=== PATIENT | male | born 1970 | race Hispanic/Latino ===

== ENCOUNTER 2020-09-30 12:31 | Emergency (ER) | payer SELFPAY ==
--- NOTE | 2020-09-30 15:39 | RAD REPORT ---
EXAM DESCRIPTION: RAD - Chest Single View - 09/30/2020 3:23 pm CLINICAL HISTORY: Cough;SOB COMPARISON: No comparisons FINDINGS: Moderate bilateral patchy airspace disease. The heart size is within normal limits.No acut e osseous abnormality. No significant pleural effusions or pneumothorax. IMPRESSION: Moderate airspace disease bilaterally concerning for multifocal pneumonia, including Cov id-19.
[2020-09-30 17:45] LABS: Absolute Lymphocytes (CBC) 0.7 K/uL (0.7-4.9); Basophils % 0.2 % (0-1.3); Hematocrit 43.5 % (39.6-49.0); Lymphocytes % 7.2 % (15.3-44.8); MPV 9.7 fL (7.6-11.3); RBC Red Blood Cell Count 4.92 M/uL (4.33-5.43)
[2020-09-30 17:50] LABS: Protime INR 1.09
[2020-09-30 18:41] LABS: ALT/SGPT 27 U/L (12-78); AST/SGOT 28 U/L (15-37); Albumin 3.1 g/dL (3.4-5.0); Alkaline Phosphatase 79 U/L (45-117); BUN Blood Urea Nitrogen 9 mg/dL (7-18); Bicarbonate 23 mmol/L (21-32); Bilirubin Direct 0.1 mg/dL (0-0.2); Bilirubin Total 0.3 mg/dL (0.2-1.0); Glucose Level 89 mg/dL (74-106); Lipase 63 U/L (73-393); Potassium 3.8 mmol/L (3.5-5.1); Protein, Total 7.6 g/dL (6.4-8.2); Sodium Level 139 mmol/L (136-145); Troponin (Emerg Dept Use Only) < 0.02 ng/mL (0.0-0.045)
[2020-09-30 18:46] LABS: White Blood Cell Scan OK (OK)
[2020-09-30 18:47] LABS: Blood Morphology Comment NOT SEEN (NOT SEEN); Platelet Estimate ADEQ
--- NOTE | 2020-09-30 19:50 | ER ---
Nurse's Notes [facility] Name: Elliot Mccoy Age: 50 yrs Sex: Male : 1970 Arrival Date: 09/30/2020 Time: 12:32 Bed 12 Private MD: Diagnosis: Coronavirus infection, unspecified;Viral pneumonia, unspecified Presentation: 09/30 13:40 Chief complaint: Patient states: Tested positive for COVID x 1 week ago, reports jl7 increased shortness of breath, unable to take a deep breath because it hurts chest and makes me cough. Coronavirus screen: Client denies travel out of the [place] in the last 14 days. cough unrelated to allergies, fatigue, shortness of breath, Client presents with at least one sign or symptom that may indicate coronavirus-19. Standard/surgical mask placed on the client. Provider contacted for isolation considerations. Client reports previous positive COVID test result. Ebola Screen: No symptoms or risks identified at this time. Initial Sepsis Screen: Does the patient meet any 2 criteria? No. Patient's initial sepsis screen is negative. Does the patient have a suspected source of infection? No. Patient's initial sepsis screen is negative. Risk Assessment: Do you want to hurt yourself or someone else? Patient reports no desire to harm self or others. Onset of symptoms was September 23, 2020. 13:40 Method Of Arrival: Ambulatory [facility] 13:40 Acuity: WILLIAM 3 jl7 Triage Assessment: 20:49 General: Appears in no apparent distress. Behavior is calm, cooperative, appropriate lh3 for age. Respiratory: Reports shortness of breath cough that is Onset: The symptoms/episode began/occurred yesterday, the patient has moderate shortness of breath. Historical: - Allergies: 13:43 No Known Allergies; jl7 - PMHx: 13:43 Asthma; jl7 - PSHx: 13:43 None; jl7 - Immunization history:: Client reports having NOT received the Covid vaccine. - Social history:: Smoking status: Patient denies any tobacco usage or history of. Screenin:13 Abuse screen: Denies threats or abuse. Denies injuries from another. Nutritional iw screening: No deficits noted. Tuberculosis screening: No symptoms or risk factors identified. Fall Risk IV access (20 points). Assessment: 19:00 Reassessment: Patient appears in no apparent distress at this time. Patient and/or iw family updated on plan of care and expected duration. Pain level reassessed. Patient is alert, oriented x 3, equal unlabored respirations, skin warm/dry/pink. 19:18 Pain: Complains of pain in chest. Cardiovascular: Rhythm is regular. Respiratory: iw Airway is patent Respiratory effort is even, labored, Breath sounds are diminished bilaterally. 19:18 Reassessment: Patient ambulated and O2 Sat dropped to 94 at the lowest. Upon returning to room patient O2 96-97 sitting.. Vital Signs: 13:40 BP 113 / 81; Pulse 75; Resp 17; Temp 97.1; Pulse Ox 96% ; Weight 113.4 kg; Height 6 ft. jl7 (182.88 cm); 19:32 BP 119 / 86; Pulse 83; Resp 20 S; Pulse Ox 92% on R/A; iw 13:40 Body Mass Index 33.91 (113.40 kg, 182.88 cm) jl7 19:32 when ambulating ED Course: 12:32 Patient arrived in ED. am2 13:43 Triage completed. jl7 13:43 Arm band placed on right wrist. jl7 15:23 CXR XRAY In Process Unspecified. EDMS 17:02 Carm[facility] Friend [facility]C [facility]. kb 17:02 Amy Scott is Attending Physician. kb 17:06 Maria A Palmer, RN is Primary Nurse. iw 17:22 EKG done, by ED staff, reviewed by Carmela MATSON. 3 17:25 First set of blood cultures drawn by mn. Inserted saline lock: 20 gauge in right 3 antecubital area, using aseptic technique. Blood collected. 17:29 Initial lab(s) drawn, by mn, sent to lab. Second set of blood cultures drawn by me. 3 19:18 Primary Nurse role handed off by Maria A Palmer, RN 2 19:18 No apparent distress. iw 19:18 Patient has correct armband on for positive identification. iw 19:18 No provider procedures requiring assistance completed. iw 20:49 IV discontinued, bleeding controlled. lh3 Administered Medications: No medications were administered Outcome: 19:50 Discharge ordered by . kb 20:41 Patient left the ED. mw2 20:48 Discharged to home ambulatory. lh3 20:48 Condition: stable 20:48 Discharge instructions given to patient, capsule maker services used Instructed on discharge instructions, medication usage, Demonstrated understanding of instructions, medications. Signatures: Dispatcher [employer] Carmela Molina, WORKPLACE TRAINER AND ASSESSOR-C WORKPLACE TRAINER AND ASSESSOR-CkMaria A Del Rio, RN RN Caty Caldwell RN RN jl7 Lakisha Veras Nery Jeff formerly [facility], [facility] Vannesa Arellano [facility] Neha Mancini RN RN 3
--- NOTE | 2020-09-30 19:50 | EDPHYS ---
Physician Documentation [facility] Name: Elliot Mccoy Age: 50 yrs Sex: Male : 1970 Arrival Date: 09/30/2020 Time: 12:32 Bed 12 Private MD: ED Physician Amy Scott HPI: 09/30 22:01 This 50 yrs old Male presents to ER via Ambulatory with complaints of Cough, kb Shortness Of Breath, COVID+. 22:01 The patient or guardian reports cough, difficulty breathing. Onset: The kb symptoms/episode began/occurred 1 week(s) ago. Severity of symptoms: At their worst the symptoms were moderate, in the emergency department the symptoms are unchanged. Modifying factors: The symptoms are alleviated by nothing, the symptoms are aggravated by nothing. Associated signs and symptoms: Pertinent positives: chest pain, with cough, Pertinent negatives: diarrhea, ear ache, fever, nausea, rhinorrhea, sore throat, vomiting. The patient has not experienced similar symptoms in the past. The patient has not recently seen a physician. Pt reports he was diagnosed with covid a week ago. Reports continued shortness of breath and cough. . Historical: - Allergies: 13:43 No Known Allergies; jl7 - PMHx: 13:43 Asthma; jl7 - PSHx: 13:43 None; jl7 - Immunization history:: Client reports having NOT received the Covid vaccine. - Social history:: Smoking status: Patient denies any tobacco usage or history of. ROS: 22:00 Constitutional: Negative for fever, chills, and weight loss. kb 22:00 Respiratory: Positive for cough, dyspnea on exertion, shortness of breath, Negative for hemoptysis, orthopnea, pleurisy, sputum production, wheezing. 22:00 All other systems are negative. Exam: 17:43 ECG was reviewed by the Attending Physician. kb 22:00 Head/Face: Normocephalic, atraumatic. ENT: Moist Mucous membranes Cardiovascular: kb Regular rate and rhythm with a normal S1 and S2. No gallops, murmurs, or rubs. No pulse deficits. Respiratory: Respirations even and unlabored. No increased work of breathing, no retractions or nasal flaring. Abdomen/GI: Soft, non-tender. No distention Skin: Warm, dry with normal turgor. Normal color. MS/ Extremity: Pulses equal, no cyanosis. Neurovascular intact. Full, normal range of motion. Neuro: Awake and alert, GCS 15, oriented to person, place, time, and situation. Moves all extremities. Normal gait. Psych: Awake, alert, with orientation to person, place and time. Behavior, mood, and affect are within normal limits. 22:00 Constitutional: The patient appears alert, awake, uncomfortable. Vital Signs: 13:40 BP 113 / 81; Pulse 75; Resp 17; Temp 97.1; Pulse Ox 96% ; Weight 113.4 kg; Height 6 ft. jl7 (182.88 cm); 19:32 BP 119 / 86; Pulse 83; Resp 20 S; Pulse Ox 92% on R/A; iw 13:40 Body Mass Index 33.91 (113.40 kg, 182.88 cm) jl7 19:32 when ambulating iw MDM: 17:02 Patient medically screened. kb 18:19 Data reviewed: vital signs, nurses notes. Data interpreted: Pulse oximetry: on room air kb is 96 %. Interpretation: normal. 22:00 Counseling: I had a detailed discussion with the patient and/or guardian regarding: the kb historical points, exam findings, and any diagnostic results supporting the discharge/admit diagnosis, lab results, radiology results, the need for outpatient follow up, a family practitioner, to return to the emergency department if symptoms worsen or persist or if there are any questions or concerns that arise at home. 22:02 ED course: Pt 97-100% on room air at rest, 92% is lowest upon ambulating. . kb 09/30 17:03 Order name: BMP; Complete Time: 18:41 kb 09/30 17:03 Order name: Blood Culture Adult (2) kb 09/30 17:03 Order name: C-Reactive Protein; Complete Time: 18:41 kb 09/30 17:03 Order name: CBC with Diff; Complete Time: 18:49 kb 09/30 17:03 Order name: D-Dimer; Complete Time: 18:01 kb 09/30 17:03 Order name: Ferritin; Complete Time: 18:41 kb 09/30 17:03 Order name: LFT's; Complete Time: 18:41 kb 09/30 17:03 Order name: Lactate; Complete Time: 18:09 kb 09/30 17:03 Order name: Lipase; Complete Time: 18:41 kb 09/30 17:03 Order name: PT-INR; Complete Time: 18:01 kb 09/30 17:03 Order name: Procalcitonin; Complete Time: 18:23 kb 09/30 17:03 Order name: Ptt, Activated; Complete Time: 18:01 kb 09/30 17:03 Order name: Troponin (emerg Dept Use Only); Complete Time: 18:41 kb 09/30 18:47 Order name: CBC Smear Scan; Complete Time: 18:49 EDMS 09/30 14:58 Order name: CXR XRAY; Complete Time: 17:02 iw 09/30 17:03 Order name: EKG; Complete Time: 17:04 kb 09/30 17:03 Order name: Droplet/Contact Precautions; Complete Time: 17:37 kb 09/30 17:03 Order name: EKG - Nurse/Tech; Complete Time: 17:37 kb 09/30 17:03 Order name: IV Start; Complete Time: 17:37 kb 09/30 17:03 Order name: Labs collected and sent; Complete Time: 17:37 kb 09/30 17:03 Order name: O2 Per Protocol; Complete Time: 17:37 kb 09/30 17:03 Order name: O2 Sat Monitoring; Complete Time: 17:37 kb 09/30 18:43 Order name: Misc. Order: ambulate pt and recheck sat; Complete Time: 19:18 kb EC:43 Rate is 66 beats/min. Rhythm is regular. QRS [place] is Normal. [place] interval is normal at kb 170 msec. QRS interval is normal at 94 msec. QT interval is normal at 388 msec. Administered Medications: No medications were administered Disposition Summary: 09/30/20 19:50 Discharge Ordered Location: Home kb Condition: Stable kb Diagnosis - Coronavirus infection, unspecified kb - Viral pneumonia, unspecified kb Followup: kb - With: Emergency Department - When: As needed - Reason: Worsening of condition Followup: kb - With: Private Physician - When: 2 - 3 days - Reason: Recheck today's complaints, Continuance of care, Re-evaluation by your physician Discharge Instructions: - Discharge Summary Sheet kb - Viral Respiratory Infection, [id number] kb - COVID-19 kb Forms: - Medication Reconciliation Form kb - Thank You Letter kb - Antibiotic Education kb - Prescription Opioid Use kb Prescriptions: - Prednisone 20 mg Oral Tablet - take 1 tablet by ORAL route once daily for 5 days; 5 tablet; Refills: 0, kb Product Selection Permitted Addendum: 10/02/2020 07:09 Co-signature as Attending Physician, Amy Scott I agree with the assessment and plan s p3 of care. Signatures: Dispatcher [employer] Carmela Molina, GIANLUCA-C GIANLUCA-Caty Crump RN RN jl7 Amy Scott sp3
[2020-09-30 20:48] VITALS: TEMP 97.1
[2020-09-30 20:49] VITALS: BP 119/86; O2SAT 92
--- NOTE | 2020-10-01 16:27 | EKG ---
Test Date: 2020-09-30 Test Time: 17:17:52 Tech Ed Teacher: REMEDIOS MEASUREMENT RESULTS: Intervals: Rate: 66 NC: 170 QRSD: 94 QT: 388 QTc: 406 [place]: P: 40 NC: 170 QRS: 71 T: 44 INTERPRETIVE STATEMENTS: Normal sinus rhythm Normal ECG No previous ECG available for comparison Electronically Signed On 10-01-20 16:24:07 CDT by Ashutosh Goldsmith
== END 2020-09-30 20:41 | disposition home or self-care (01) ==
LOC: ER 12:31
DX: U07.1 COVID-19 (principal); J12.9 Viral pneumonia, unspecified
CPT/HCPCS: 36415; 71045; 80048; 80076; 82728; 83605; 83690; 84145; 84484; 85025; 85379; 85610; 85730; 86140; 87040; 93005; 99284